=== PATIENT | male | born 1980 | race African-American/Black ===

== ENCOUNTER 2024-05-23 13:38 | Emergency (ER) | payer MEDICARE, MEDICAID, SELFPAY ==
[2024-05-23 14:25] VITALS: BP 115/74; PULSE 77; RESP 14; TEMP 36.4; O2SAT 98; BMI 21.3
--- NOTE | 2024-05-23 15:52 | ED.GENADULT ---
HPI - General Adult General Date Seen: 05/23/24 Chief complaint: Extremity Pain/Injury, Upper Stated complaint: Rt shoulder pain Time Seen by Provider: 05/23/24 15:32 Source: patient and church musician Mode of arrival: ambulatory Limitations: no limitations History of Present Illness HPI narrative: Patient is a 43-year-old male brought in to emergency department for her shoulder pain. He lives in an independent care senior living. He was visiting his mother with staff when he is complaining of a worsening left shoulder pain so they brought him to the emergency department. Patient has been having issues with his left shoulder for the past year. He has been seen orthopedic provider for it but last August he needed surgery for right knee fracture in this they have been focusing on the knee injury. Has had multiple cortisone shots to his left shoulder without any improvement. States they typically make him worse. Takes Tylenol ibuprofen for pain and that seems to help the knee but does not seem to help the shoulder. The senior living staff member notice the patient's shoulder was causing him more pain so the brought into the emergency department. Has not had any MRI of the shoulder yet but has had x-rays. Does not remember any injuries to the shoulder. Most of the pain is the anterior portion of the shoulder. Hurts whenever he moves it. Related Data Previous Rx's ?Medication ?Instructions ?Recorded ketorolac 10 mg tablet 10 mg PO Q6H PRN pain #20 tabs 05/23/24 oxycodone 5 mg tablet 5 mg PO Q6H PRN pain #12 tabs 05/23/24 Allergies Allergy/AdvReac Type Severity Reaction Status Date / Time No Known Drug Allergies Allergy Verified 05/23/24 14:15 Review of Systems Narrative: Pertinent systems reviewed and were negative unless stated in HPI Exam Narrative: Exam Narrative: Const: Well-nourished, Well-developed, in mild distress Eyes: PERRL, no conjunctival injection, and symmetrical lids HENT: Atraumatic external nose and ears. Moist mucous membranes. MSK: Pain with movement of the left shoulder. Tenderness to palpation anterior aspect of the left shoulder. No tenderness noted to the posterior aspect. Skin: Warm, Dry. No rashes or lesions. Neuro: Normal Muscle tone, No focal neurological deficits. Psych: Awake, Alert, & Oriented x3. Appropriate mood and affect. Const: Vital Signs, click to edit/add: Vital Signs - 24 hr 05/23/24 14:25 Temperature 97.6 F Pulse Rate [Pulse Oximeter] 77 Respiratory Rate 14 Blood Pressure [Ri ght Upper Arm] 115/74 Pulse Oximetry 98 Oxygen Delivery Me thod Room Air Course Vital Signs Vital signs: Initial Vital Signs Temperature 97.6 F 05/23/24 14:25 Temperature Source Temporal Artery Scan 05/23/24 14:25 Pulse Rate 77 05/23/24 14:25 Pulse Rhythm Regular 05/23/24 14:25 Respiratory Rate 14 05/23/24 14:25 Blood Pressure 115/74 05/23/24 14:25 Blood Pressure Mean 87 05/23/24 14:25 Blood Pressure Position Sitting 05/23/24 14:25 Pulse Oximetry 98 05/23/24 14:25 Oxygen Delivery Method Room Air 05/23/24 14:25 Vital Signs Temperature 97.6 F 05/23/24 14:25 Pulse Rate 77 05/23/24 14:25 Respiratory Rate 14 05/23/24 14:25 Blood Pressure 115/74 05/23/24 14:25 Pulse Oximetry 98 05/23/24 14:25 Oxygen Delivery Method Room Air 05/23/24 14:25 Temperature 97.6 F 05/23/24 14:25 Pulse Rate 77 05/23/24 14:25 Respiratory Rate 14 05/23/24 14:25 Blood Pressure 115/74 05/23/24 14:25 Pulse Oximetry 98 05/23/24 14:25 Oxygen Delivery Method Room Air 05/23/24 14:25 Medical Decision Making MDM Narrative Medical decision making narrative: Patient is a 43-year-old male presenting for left shoulder pain. He has pain whenever he moves his shoulder. All the pain is localized to the anterior aspect of the shoulder and has a pinpoint tenderness about 4 to 5 cm inferior to the clavicle. Considering he has had multiple x-rays already a do not believe further imaging will be beneficial here in the emergency department I do believe he needs an outpatient MRI. Will treat him with Toradol for pain and also offer him oxycodone. I spoke to his senior living staff member and they do feel comfortable with him managing his medication at home by himself like normal. Has been prescribed hydromorphone before from his knee injury and surgery and was able to manage the medication appropriately. Medication was order to hopefully get him past this acute flare of the pain till he can see his orthopedic provider. He will be discharged. Discharge Plan Discharge Clinical Impression: Chronic left shoulder pain Patient Disposition: Home w/ Parent or Adult Condition: Stable Instructions: Shoulder Pain (ED) Additional Instructions: Take Tylenol for pain if that is not helping you can use the Toradol. While taking Toradol do not take any other NSAID such as naproxen ibuprofen. If that is not helping you can take the oxycodone but be careful when he take it as it does increase her fall risk. Is very important that you do not take too much as it is something you can overdose on. Make sure to follow-up with the orthopedic provider. You will be unable to get any further narcotics from the [facility] Prescriptions: New ketorolac 10 mg tablet 10 mg PO Q6H PRN (Reason: pain) Qty: 20 0RF Rx Instructions: maximum total duration of 5 days from all oral, intranasal, or parenteral formulations oxycodone 5 mg tablet 5 mg PO Q6H PRN (Reason: pain) Qty: 12 0RF Stand Alone Forms: [employer] Info Instructions
== END 2024-05-23 17:08 | disposition home or self-care (01) ==
LOC: ED 16:39
PROVIDERS: Emergency Provider Student in an Organized Health Care Education/Training Program
DX: M25.512 Pain in left shoulder (principal)
CPT/HCPCS: 99283